=== PATIENT | male | born 1970 | race Two or more races ===

== ENCOUNTER 2018-04-10 13:48 | Emergency (ER) | payer SELFPAY ==
[2018-04-10 14:04] VITALS: BP 124/77; PULSE 72; RESP 18; TEMP 98.4; O2SAT 98
--- NOTE | 2018-04-10 14:16 | ED PDOC ---
HPI: General Adult Time Seen by Provider: 04/10/18 14:00 Chief Complaint (Nursing): Abdominal Pain Chief Complaint (Provider): Abdominal Concern History Per: Patient History/Exam Limitations: no limitations Onset/Duration Of Symptoms: Hrs Current Symptoms Are (Timing): Gone Now Additional Complaint(s): Gurwinder De Jesus is a 48 year old male with no past medical history who is presenting to the ED for evaluation of abdomen, s/p noting some swelling that moved while doing sit-ups prior to arrival. Patient denies any vomiting, diarrhea, or fever. He reports no history of surgeries. Symptoms have resolved and patient offers no other medical complaints at this time. PMD: Osbaldo Mares Past Medical History Reviewed: Historical Data, Nursing Documentation, Vital Signs Vital Signs: Last Vital Signs Temp 98.4 F 04/10/18 13:58 Pulse 72 04/10/18 13:58 Resp 18 04/10/18 13:58 BP 124/77 04/10/18 13:58 Pulse Ox 98 04/10/18 14:20 - Medical History PMH: No Chronic Diseases - Surgical History Surgical History: No Surg Hx - Family History Family History: States: Unknown Family Hx - Social History Alcohol: None Drugs: Denies - Allergies Allergies/Adverse Reactions: Allergies Allergy/AdvReac Type Severity Reaction Status Date / Time No Known Allergies Allergy Verified 04/10/18 14:04 Review of Systems ROS Statement: Except As Marked, All Systems Reviewed And Found Negative Gastrointestinal: Positive for: Other (abdominal swelling, movement ) Physical Exam - Reviewed Nursing Documentation Reviewed: Yes Vital Signs Reviewed: Yes - Physical Exam Appears: Positive for: Well, Non-toxic, No Acute Distress Head Exam: Positive for: ATRAUMATIC, NORMAL INSPECTION, NORMOCEPHALIC Gastrointestinal/Abdominal: Positive for: Normal Exam, Soft. Negative for: Tenderness, Mass, Guarding, Rebound, Hernia (no hernia perceived) Neurologic/Psych: Positive for: Alert, Oriented. Negative for: Motor/Sensory Deficits - ECG O2 Sat by Pulse Oximetry: 98 (RA) Pulse Ox Interpretation: Normal Medical Decision Making Medical Decision Making: Time: 14: 05 Provider explained to patient the possibility of a muscle spasm as abdominal occurred during sit up and resolved when stopping.. Provider also explained possibility of hernia but noted she did not discern hernia on physical exam. Upon provider evaluation patient is medically stable, and requires no further treatment in the ED at this time. Patient will be discharged. Counseling was provided and all questions were answered regarding diagnosis and need for follow up. There is agreement to discharge plan. Return if symptoms persist or worsen. Scribe Attestation: Documented by Shannan Markham, acting as a scribe for Velma Caban PA-C. Provider Scribe Attestation: All medical record entries made by the Scribe were at my direction and personally dictated by me. I have reviewed the chart and agree that the record accurately reflects my personal performance of the history, physical exam, medical decision making, and the department course for this patient. I have also personally directed, reviewed, and agree with the discharge instructions and disposition. Disposition - Clinical Impression Clinical Impression: Abdominal pain - Patient ED Disposition Is Patient to be Admitted: No - Disposition Referrals: [facility] [Outside] Shan Soto MD [Staff Provider] - Disposition: Routine/Home Disposition Time: 14:05 Condition: GOOD Instructions: Acute Abdomen (Belly Pain), Adult (DC) Print Language: LITHUANIAN
== END 2018-04-10 14:30 | disposition home or self-care (01) ==
LOC: H.ER 13:48
DX: R10.9 Unspecified abdominal pain (principal); Y93.B2 Activity, push-ups, pull-ups, sit-ups; Y92.89 Other specified places as the place of occurrence of the external cause